=== PATIENT | male | born 1940 | race Caucasian/White ===

== ENCOUNTER → 2017-09-23 | Outpatient (CLI) | payer OTHER ==
[~2017-09-23] MED LIST: ARICEPT 5 MG TAB5 MG PO; ASPIR 8181 MG PO; AVELOX ABC PAC400 MG PO; B12INJ IM; CENTRUM SILVER1 EAC2 PO; CRESTOR; EFFIENT10 MG PO; EZETIMIBE; FISHOIL; LISINOPRIL10 MG PO; LIVALO2 MG PO; PAXIL10 MG PO; PRALUENT P75 MG/1 ML SQ; PROAIR HFA8.5 GM IH; ZANTAC 150MG T150 MG
[2017-09-23 12:05] LABS: ALBUMIN 3.7 g/dL (3.4-5.0); ALKALINE PHOSPHATASE 56 U/L (46-116); ANION GAP 9 mmol/L (7-16); BUN 20 mg/dL (7-18); CHLORIDE 106 mmol/L (98-107); CHOLESTEROL 259 mg/dL (<200); CO2 24 mmol/L (21-32); CREATININE 0.8 mg/dL (0.6-1.3); GLUCOSE 113 mg/dL (70-99); HDL CHOLESTEROL 52 mg/dL (>40); LDL CHOLESTEROL 163 mg/dL (<100); POTASSIUM 4.3 mmol/L (3.5-5.1); SGOT 14 U/L (15-37); SGPT 16 U/L (30-65); SODIUM 139 mmol/L (136-145); TOTAL BILIRUBIN 0.2 mg/dL (<0.1-1.0); TOTAL PROTEIN 7.7 g/dL (6.4-8.2); TRIGLYCERIDE 221 mg/dL (<150); VLDL 44 mg/dL (<40)
[2017-09-23 12:06] LABS: SERUM ASSESSMENT Clear
== END ==
LOC: M.LAB 11:12
PROVIDERS: Internal Medicine
DX: E78.2 Mixed hyperlipidemia (principal)

== ENCOUNTER → 2018-10-20 | Outpatient (CLI) | payer OTHER ==
[2018-10-20 13:53] LABS: CHOLESTEROL 235 mg/dL (<200); HDL CHOLESTEROL 57 mg/dL (>40); LDL CHOLESTEROL 148 mg/dL (<100); SERUM ASSESSMENT Clear; TC:HDL 4.1 Ratio (Not establshd); TRIGLYCERIDE 152 mg/dL (<150); VLDL 30 mg/dL (<40)
== END ==
LOC: M.LAB 13:14
PROVIDERS: Nurse Practitioner
DX: E78.5 Hyperlipidemia, unspecified (principal)

== ENCOUNTER 2018-12-25 09:01 | Inpatient (IN) | payer OTHER ==
[~2018-12-25] VITALS: Ht 167.6 cm; Wt 74.8 kg
[2018-12-25 09:08] VITALS: BP 120/61
[2018-12-25] MEDS ORDERED: MYRBETRIQ25 MG PO (09:24)
[2018-12-25] MEDS ORDERED: PRALUENT P75 MG/1 ML SUBQ (09:25)
[2018-12-25] MEDS ORDERED: IMDUR 30 MG TAB30 M1 PO (09:27)
[2018-12-25] MEDS ORDERED: PLAVIX 75 MG TA75 M1 PO (09:28)
[2018-12-25 09:51] LABS: ABSOLUTE EOSINOPHILS 0.4 thou/uL (0.0-0.7); ABSOLUTE LYMPHOCYTES 0.9 thou/uL (0.8-5.3); ABSOLUTE MONOCYTES 0.7 thou/uL (0.0-1.2); ABSOLUTE NEUTROPHILS 4.7 thou/uL (1.6-8.1); BASOPHILS 0.7 %; EOSINOPHILS 5.3 %; HEMOGLOBIN 14.4 gm/dL (14.0-18.0); LYMPHOCYTES 13.8 %; MCH 28.5 pg (26.0-34.0); MCHC 33.4 g/dL (28.0-37.0); MCV 85.3 fL (80.0-100.0); MONOCYTES 10.4 %; MPV 9.7 fl. (7.2-11.1); NUCLEATED RBCS 0 /100WBC; PLATELET COUNT* 163 thou/uL (150-400); POLYS 69.8 %; RBC 5.04 mil/uL (4.50-6.00); RDW-CV 12.9 % (10.5-14.5); WBC 6.7 thou/uL (4.0-11.0)
[2018-12-25 10:02] LABS: ANION GAP 9 mmol/L (7-16); BUN 16 mg/dL (7-18); CALCIUM 8.9 mg/dL (8.5-10.1); CHLORIDE 106 mmol/L (98-107); CO2 28 mmol/L (21-32); CREATININE 0.8 mg/dL (0.6-1.3); GLUCOSE 102 mg/dL (70-99); POTASSIUM 4.3 mmol/L (3.5-5.1); SODIUM 143 mmol/L (136-145)
[2018-12-25 10:03] LABS: BE 0.3 mmol/L (-2 to +3); PO2 101.7 mmHg (75.0-100.0); pH 7.434 (7.340-7.450)
[2018-12-25 10:11] LABS: ALBUMIN 3.4 g/dL (3.4-5.0); ALKALINE PHOSPHATASE 48 U/L (46-116); MAGNESIUM 1.9 mg/dL (1.8-2.4); SGOT 15 U/L (15-37); SGPT 19 U/L (30-65); TOTAL BILIRUBIN 0.4 mg/dL (<0.1-1.0); TOTAL PROTEIN 7.1 g/dL (6.4-8.2); TROPONIN-I LEVEL <0.06 ng/mL (<0.06)
[2018-12-25 10:15] LABS: PROTIME 10.3 Seconds (9.20-11.50)
--- NOTE | 2018-12-25 10:19 | NUR ---
PT STATES NOT ABLE TO GIVE URINE SAMPLE AT THIS TIME, WAS GIVEN WATER UPON PT'S REQUEST AND HAS A URINAL AT BEDSIDE.
[2018-12-25 11:28] LABS: URINE BILIRUBIN NEGATIVE (Negative); URINE BLOOD NEGATIVE (Negative); URINE CLARITY CLEAR; URINE COLOR YELLOW; URINE GLUCOSE-RANDOM NEGATIVE (Negative); URINE KETONES NEGATIVE (Negative); URINE LEUKOCYTES-REFLEX NEGATIVE (Negative); URINE NITRITE-REFLEX NEGATIVE (Negative); URINE PROTEIN NEGATIVE (Negative); URINE UROBILINOGEN 0.2 E.U./dl (0.2-1.0)
[2018-12-25 13:20] VITALS: BP 121/68
[2018-12-25 14:30] VITALS: BP 97/58
--- NOTE | 2018-12-25 15:45 | NUR ---
PATIENT ARRIVED TO 221 THIS AFTERNOON FROM MRI. PATIENT IS ALERT, ORIENTED TO PERSON. REORIENTED TO DATE AND PLACE. PATIENT WAS ASSISTED UP TO THE BATHROOM BY RADIOLOGY PERSONAL. HIS GAIT IS UNSTEADY. HIS DAUTHTER IS AT THE BEDSIDE. VSS. PATIENT PLACED ON TELE MONITOR, TELE SHOWS NSR. PATIENT ORIENTED TO ROOM AND PROCEDURES. HE WAS RESTING IN BED WITH CALL LIGHT IN REACH. PATIENT,S DAUGHTER ASSISTED HIM TO THE BATHROOM AND UP TO CHAIR. PATIENT REMINDED OF FALL PRECAUTIONS. NEUROLOGY IS HERE NOW TO SEE PATIENT.
[2018-12-25 15:53] VITALS: BP 143/65
[2018-12-25 20:00] VITALS: BP 142/68
[2018-12-26] VITALS (7 sets, daily range): BP systolic 104–163; BP diastolic 53–82
--- NOTE | 2018-12-26 05:04 | NUR ---
PT IRRITABLE, IMPULSIVE AND WANTING TO GO HOME AT START OF SHIFT. DTR HERE, REQUESTING MED FOR SLEEP AND ANXIETY FOR PT-ORDERS RECEIVED AND GIVEN. PT SLEPT WELL OFF AND ON, SETTING OFF BED ALARM WHEN TRYING TO GET OOB TO USE URINAL. ASSISTED WITH URINAL TO VOID. DENIES PAIN. NIH 5 THIS SHIFT, SOME LEFT LEG DRIFT, FACIAL PALSY AND SLURRED SPEECH. TELE SR. BC MCKEON. REHAB CONSULT. ROOM AIR. CALL LITE IN EASY REACH. BED ALARM ON FOR SAFETY.
[2018-12-26 05:31] LABS: ABSOLUTE EOSINOPHILS 0.4 thou/uL (0.0-0.7); ABSOLUTE LYMPHOCYTES 1.3 thou/uL (0.8-5.3); ABSOLUTE MONOCYTES 0.8 thou/uL (0.0-1.2); ABSOLUTE NEUTROPHILS 3.5 thou/uL (1.6-8.1); BASOPHILS 0.8 %; EOSINOPHILS 6.9 %; HEMOGLOBIN 14.5 gm/dL (14.0-18.0); LYMPHOCYTES 21.1 %; MCH 28.7 pg (26.0-34.0); MCHC 33.6 g/dL (28.0-37.0); MCV 85.3 fL (80.0-100.0); MONOCYTES 13.3 %; MPV 9.7 fl. (7.2-11.1); NUCLEATED RBCS 0 /100WBC; PLATELET COUNT* 148 thou/uL (150-400); POLYS 57.9 %; RBC 5.04 mil/uL (4.50-6.00); RDW-CV 12.6 % (10.5-14.5)
[2018-12-26 05:50] LABS: ALBUMIN 3.1 g/dL (3.4-5.0); CALCIUM 8.8 mg/dL (8.5-10.1); CREATININE 0.8 mg/dL (0.6-1.3); POTASSIUM 4.3 mmol/L (3.5-5.1); TOTAL BILIRUBIN 0.3 mg/dL (<0.1-1.0); TOTAL PROTEIN 6.7 g/dL (6.4-8.2)
--- NOTE | 2018-12-26 09:00 | NUR ---
INITAL ASSESSMENT COMPLETED CHARTED. NIH=2. TRACING SR ON MONITOR. VSS. PT CECILIO PAIN N/V/D. NO NEW CONCERNS. PT DENIES ANY FURTHER NEEDS AT THIS TIME. HOURLY ROUNDING AND FALL PRECAUTIONS IN PLACE FOR PT SAFETY. CLWR
--- NOTE | 2018-12-26 13:51 | NUR ---
Spoke with Pt, dtr and s/o in room. Pt has dementia, but able to provide some background info. Pt resides at home with his dtr, dtr assists with cares. Pt is incontinent. Dtr has lived with the Pt for the past 2 years. Dtr works during the day, but s/o comes and stays with Pt most of the time. Pt has a walker and cane that he can use for mobility. Hx of HH. No hx of SNF. Hx of outpt therapy. Goal is for Pt to go [place], then to home with dtr/family support. Following.
[2018-12-27 04:00] VITALS: BP 148/59
--- NOTE | 2018-12-27 05:06 | NUR ---
PT SLEPT WELL OVERNIGHT, SETTING OFF BED ALARM TRYING TO GET OUT OF BED TO GO TO THE BATHROOM. PT WEAK, USING URINAL AT BEDSIDE AT TIMES BUT INCONTINENT MOST OF THE TIME OVERNIGHT. TYLENOL GIVEN AT HS FOR FRIEDMAN WITH GOOD RESULT. NADYA. TELE SR, SB. REHAB AND UROLOGY TO SEE PT. NO LABS THIS MORNING. CALL LITE IN EASY REACH, BED ALARM ON FOR SAFETY.[facility] 2 THIS SHIFT.
[2018-12-27 08:00] VITALS: BP 152/68
--- NOTE | 2018-12-27 10:07 | NUR ---
ASSUMED CARE OF PT AT 0730. PT RESTING IN RECLINER WAITING FOR BREAKFAST. PT A&0X4, FORGETFUL AT TIMES. PT TRACING SR ON THE FURNITURE MANAGER. ON RA SAT UPPER 90'S. PT DENIES ANY PAIN OR SHORTNESS OF BREATH AT THIS TIME. PT UP WITH 1 ASSIST AND WALKER TO BATHROOM. PT HAS STRESS INCONT, UROLOGY CONSULT IN PLACE. PT GOAL FOR TODAY IS WORK WITH PT AND OT, UROLOGY TO SEE PT, REHAB CONSULT IN PLACE AND UP TO CHAIR FOR MEALS. AM ASSESSMENT CHARTED. MEDICATIONS PER JUL. PT REPOSITIONED EVERY 2 HOURS FOR COMFORT. HOURLY ROUNDING OBSERVED. BED IN LOW POSITION. BED ALARM IN PLACE. FALL PRECAUTIONS IN PLACE. CALL LIGHT WITHIN REACH. WILL CONTINUE PLAN OF CARE.
[2018-12-27 11:30] VITALS: BP 109/56
--- NOTE | 2018-12-27 11:48 | NUR ---
LEAD POURER: MET WITH PATIENT REVIEWED STROKE PROGRAM AND DISCUSSED CONCERNS, PT REPORTS NOT REMEMBERING TO TAKE HIS MEDICATIONS AT HOME CONSISTENTLY. REVIEWED SIGNS AND SYMPTOMS OF STROKE AND DISCUSSED MEDICATIONS, TAKING STATIN TO LOWER LDL. PROVIDED REINFORCEMENT.
--- NOTE | 2018-12-27 11:48 | NUR ---
Spoke with , Pt is medically stable to dc pending acute rehab approval to accept and insurance auth. Updated rehab tech.
[2018-12-27 16:05] VITALS: BP 126/58
--- NOTE | 2018-12-27 18:38 | NUR ---
NO ACUTE CHANGES THROUGHOUT SHIFT. REFER TO CHARTING. PT PROGRESSING TOWARDS GOALS. UP TO CHAIR FOR ALL MEALS. TOLERATED WELL. VISITORS AT BEDSIDE THIS AFTERNOON. PT MADE MED SURG STATUS. ON RA SAT UPPER 90'S. PT DENIES ANY PAIN OR SHORTNESS OF BREATH THROUGHOUT AFTERNOON. PT UP WITH 1 ASSIST AND WALKER TO BATHROOM. PT WORKED WITH PT AND OT TODAY-TOLERATED WELL. MEDICATIONS PER JUL. PT REPOSITIONS SELF. HOURLY ROUNDING OBSERVED. BED IN LOW POSITION. CALL LIGHT WITHIN REACH. WILL CONTINUE PLAN OF CARE.
[2018-12-27 19:50] VITALS: BP 126/58
[2018-12-28] VITALS: BP 160/68
--- NOTE | 2018-12-28 07:45 | NUR ---
Rehab Dr evaluated Pt, Pt looks to be a good rehab candidate, CM asked rehab manager to initiate insurance auth, Pt is medically stable to dc. Following.
--- NOTE | 2018-12-28 07:45 | NUR ---
PT CARE ASSUMED AT 1930. SAT MAINTAINED IN RA. PT IS IMPULSIVE, HAS URGENCY OF URINE. CONFUSED AT TIMES. CALL LIGHT WITHIN REACH AND BED IN LOW POSITION. HOURLY ROUNDING DONE FOR PT SAFETY.
[2018-12-28 08:00] VITALS: BP 153/69
[2018-12-28 12:00] VITALS: BP 130/63
--- NOTE | 2018-12-28 13:05 | NUR ---
ASSUMED CARE OF PT AT 0730. PT RESTING IN BED. PT A&0X3-4, FORGETFUL AND CONFUSED AT TIMES. PT STATES HE DID NOT SLEEP WELL AT ALL LAST NOC AND REQUESTED TO SLEEP IN THIS AM. PT SLEPT THROUGH BREAKFAST AND REFUSED TO EAT BREAKFAST. PT CURRENTLY EATING LUNCH AT THIS TIME. PT MED SURG STATUS. ON RA SAT 95%. PT DENIES ANY PAIN OR SHORTNESS OF BREATH AT THIS TIME. PT UP WITH 1 ASSIST AND WALKER TO BATHROOM. STRESS INCONT NOTED. UROLOGY HERE TO SEE PT. NO NEW ORDERS RECEIVED. PVR LESS THAN 100. PT GOAL FOR TODAY IS WORK WITH PT AND OT AND DISCHARGE PLANNING TO REHAB. AM ASSESSMENT CHARTED. MEDICATIONS PER JUL. PT REPOSITIONED EVERY 2 HOURS FOR COMFORT. HOURLY ROUNDING OBSERVED. BED IN LOW POSITION. BED/CHAIR ALARM IN PLACE. FALL PRECAUTIONS IN PLACE. CALL LIGHT WITHIN REACH. WILL CONTINUE PLAN OF CARE.
--- NOTE | 2018-12-28 13:23 | NUR ---
Insurance auth received, awaiting room assignment. CM to fax orders. Updated nurse.
[2018-12-28] MEDS ORDERED: LIPITOR10 MG PO (15:34)
[2018-12-28] MEDS ORDERED: SERTRALINE HCL50 MG PO (15:35)
[2018-12-28] MEDS ORDERED: NAMENDA 5 MG TAB5 M1 PO (15:38)
[2018-12-28 15:40] VITALS: BP 130/63
--- NOTE | 2018-12-28 16:50 | NUR ---
PT WORKED WITH PT AND OT TODAY. TOLERATED WELL. UP TO CHAIR FOR MEALS. DISCHARGE ORDERS RECEIVED. DISCHARGE INSTRUCTIONS, CARE NOTES, SCRIPTS AND FOLLOW UP APPTS GIVEN TO PT. PT COMMUNICATES UNDERSTANDING OF DISCHARGE TEACHING. FAMILY AT BEDSIDE. IV REMOVED. PT DISCHARGED WITH ALL BELONGINGS AND PAPERWORK VIA WHEELCHAIR WITH NURSING STAFF TO REHAB ROOM 324. REPORT GIVEN TO MIRNA LI.
== END 2018-12-28 16:52 | DRG 65 ==
LOC: M.ERS 09:01 → M.2W 12:01 → M.TBA-ER 12:01 → M.ERS 13:22 → M.2W 13:48
PROVIDERS: Personal Emergency Response Attendant; ADMIT Internal Medicine
DX: I63.9 Cerebral infarction, unspecified (principal); G81.94 Hemiplegia, unspecified affecting left nondominant side; E78.00 Pure hypercholesterolemia, unspecified; F03.90 Unspecified dementia, unspecified severity, without behavioral disturbance, psychotic disturbance, mood disturbance, and anxiety; K21.9 Gastro-esophageal reflux disease without esophagitis; F32.9 Major depressive disorder, single episode, unspecified; G47.33 Obstructive sleep apnea (adult) (pediatric); E78.5 Hyperlipidemia, unspecified; R32 Unspecified urinary incontinence; I10 Essential (primary) hypertension; I25.10 Atherosclerotic heart disease of native coronary artery without angina pectoris; Z95.5 Presence of coronary angioplasty implant and graft; Z79.82 Long term (current) use of aspirin; Z88.8 Allergy status to other drugs, medicaments and biological substances; Z87.891 Personal history of nicotine dependence; Z90.49 Acquired absence of other specified parts of digestive tract

== ENCOUNTER 2018-12-28 14:44 | Inpatient (IN) | payer OTHER ==
[~2018-12-28] VITALS: Ht 167.6 cm; Wt 72.1 kg
[~2018-12-28 14:44] MED LIST changes: +IMDUR 30 MG TAB30 M1 PO; +MYRBETRIQ25 MG PO; +PLAVIX 75 MG TA75 M1 PO; +PRALUENT P75 MG/1 ML SUBQ
[2018-12-28] MEDS ORDERED: LIPITOR10 MG PO (15:34)
[2018-12-28] MEDS ORDERED: SERTRALINE HCL50 MG PO (15:35)
[2018-12-28] MEDS ORDERED: NAMENDA 5 MG TAB5 M1 PO (15:38)
[2018-12-28 17:30] VITALS: BP 120/50
--- NOTE | 2018-12-28 18:39 | NUR ---
PATIENT ADMITTED TO ROOM 324 FROM [facility]. REPORT RECEIVED FROM MIRNA VILLANUEVA. PATIENT ALERT AND ORIENTED, COOPERATIVE. NO COMPLAINTS OF PAIN. PATIENT SITTING IN RECLINER. REG DIET. ORDERS RECEIVED FROM DR. LEUNG AND DR. GLEZ FOR ADMISSION AND MEDS. FALL RISK PROTOCOL. ORIENTED TO ROOM AND ROUTINE. CALL LIGHT WITHIN REACH, WILL CONTINUE TO MONITOR.
[2018-12-28 19:35] VITALS: BP 120/56
--- NOTE | 2018-12-28 19:35 | NUR ---
AT ABOUT 1920 PATIENT SET OFF CHAIR ALARM. DAY RN GOT TO PATIENT BEFORE PATIENT GOT UP. DAY RN STATES PATIENT WAS INCONTINENT OF URINE. PATIENT ASSISTED TO BED WITH MAX ASSIST OF 2, GAITBELT, WALKER, CUEING, LIFTING OF BOTH LEGS. PATIENT HAS LEFT HEMIPARESIS ESPECIALLY IN THE LOWER EXTREMITY. CURRENTLY RESTING QUIETLY IN BED AND WATCHING THE NEWS. TOOK MEDS WHOLE A FEW AT A TIME WITH WATER. DENIES DISCOMFORT.
[2018-12-29 02:10] LABS: URINE BILIRUBIN NEGATIVE (Negative); URINE BLOOD NEGATIVE (Negative); URINE CLARITY CLEAR; URINE COLOR YELLOW; URINE GLUCOSE-RANDOM NEGATIVE (Negative); URINE KETONES NEGATIVE (Negative); URINE LEUKOCYTES NEGATIVE (Negative); URINE NITRITE NEGATIVE (Negative); URINE PROTEIN NEGATIVE (Negative); URINE UROBILINOGEN 0.2 E.U./dl (0.2-1.0)
--- NOTE | 2018-12-29 05:17 | NUR ---
AT 0030 PATIENT SET OFF BED ALARM. PATIENT WAS STANDING AT SIDE OF BED WHEN STAFF ARRIVED. INCONTINENT OF URINE IN PULL UPS PLUS VOIDED MORE PER URINAL. URINE SAMPLE SENT FOR UA WHICH WAS NEGATIVE. HOURLY ROUNDING IN PROGRESS.
[2018-12-29 07:41] VITALS: BP 156/66
[2018-12-29 08:40] LABS: HEMATOCRIT 44.4 % (42.0-52.0); HEMOGLOBIN 15.4 gm/dL (14.0-18.0); MCH 29.3 pg (26.0-34.0); MCHC 34.7 g/dL (28.0-37.0); MCV 84.4 fL (80.0-100.0); MPV 9.8 fl. (7.2-11.1); RBC 5.26 mil/uL (4.50-6.00); RDW-CV 12.9 % (10.5-14.5); WBC 6.4 thou/uL (4.0-11.0)
[2018-12-29 08:44] LABS: CREATININE 0.7 mg/dL (0.6-1.3); POTASSIUM 4.3 mmol/L (3.5-5.1)
--- NOTE | 2018-12-29 09:45 | NUR ---
Nutrition: Pt admitted to rehab with Rt CVA. H/o CAD, HTN, dementia. Regular diet, good appetite. Wt change consult: per [employer], wt was 170# 2 yrs ago, admit was 161#, today's wt is 160#. No apparent significant wt loss. Meds noted. Will follow po intake, wt trends, labs. Appears at low risk.
--- NOTE | 2018-12-29 15:27 | NUR ---
SW completed initial assessment, pt was working with PT, SW called pt dtr and left detailed message introducing self and role on inpt rehab. Pt lives at home with dtr who works during the day but provides assistance otherwise and pt significant other assist pt and can be with pt whenever pt dtr is working. Pt is incontinent. Pt has RW and a cane. Pt has hx of HH and hx of OP. Pt doesn't have any hx of SNF. SW to continue to follow to assist with safe dc planning.
--- NOTE | 2018-12-29 16:08 | NUR ---
SHIFT NOTE - PT PARTICIPATED WITH ALL THERAPIES TODAY. TOLERATED WELL. UP TO BR WITH WALKER, GAIT BELT, AND MIN ASSIST. BRIEF PLACED. WILL CONTINUE TO MONITOR.
--- NOTE | 2018-12-29 16:12 | NUR ---
I have reviewed the documentation by HARIKA GOMEZ from TODAY to 12/29/18 and I concur with it. MILLIE LOO
[2018-12-29 20:00] VITALS: BP 160/70
--- NOTE | 2018-12-30 05:28 | NUR ---
ALERT AND ORIENTED. PLEASANT BUT FORGETFUL AT TIMES. IMPULSIVE, GETTING UP OUT OF BED WITHOUT CALLING. CVA WITH LEFT SIDE WEAKNESS. MIN ASSIST WITH GAIT BELT AND WALKER. UNSTEADY SLOW GAIT. DRAGS LEFT FOOT. NEEDS CUEING TO KEEP WALKER CLOSE AT ALL TIMES. UP TO BATHROOM. PULLUPS FOR URINARY INCONTINENCE. DID HAVE STOOL ACCIDENT WELL. DENIED ANY PAIN. PT REQUESTED PODIATRY CONSULT TO TRIM TOENAILS. SLEPT OFF AND ON. CALL LIGHT IN REACH AND BED ALARM ON.
[2018-12-30 08:30] VITALS: BP 135/68
--- NOTE | 2018-12-30 13:16 | NUR ---
SW met with pt and pt dtr Tessa [phone] to discuss inpt rehab stay and safe dc planning when ready. Pt and pt dtr expressed understanding and continue to work towards goals for pt to be as independent as possible upon dc home with family/sig other assistance/supervision. SW to continue to follow to assist with safe dc planning.
--- NOTE | 2018-12-30 14:08 | NUR ---
ASSUMED CARE AT 0730. ALERT ORIENTED PLEASANT AND COOPERATIVE. HX OF DEMENTIA AND CVA L SIDE WEAKNESS. TRANSFERS WITH MIN ASSIST G BELT WALKER NEEDS CUES TO STAY ON TRACK. DID REQUEST TOILET THIS A.M. WAS INCONTINENT URINE IN PULLUPS PERICARE AND FRESH PULLUPS APPLIED. C/O NAUSEA UPSET TUMMY THROUGH THE NIGHT TOOK CRACKERS AND SEVEN UP. DR. BARRY AND AMARIS ROUNDED. PROTONIX AND ZOFRAN ORDERED. PARTICIPATING IN THERAPIES. DAUGHTER KEMAR FROM [employer] HERE TODAY. NEEDS CUEING WITH AMBULATION. SITTING UP IN RECLINER AT BEDSIDE. HAS USED CALL LIGHT APPROPRIATELY TODAY FOR ASSIST.
--- NOTE | 2018-12-30 15:14 | NUR ---
I have reviewed the documentation by HARIKA GOMEZ from TODAY to 12/30/18 and I concur with it. MILLIE LOO
--- NOTE | 2018-12-30 18:25 | NUR ---
NO FURTHER COMPLAINTS OF NAUSEA APPETITE GOOD AT LUNCH AND SUPPER. DAUGHTER AND BROTHER HERE VISITING AND SIGNIFICENT OTHER VISITING LATER AFTERNOON. MOVE TO ROOM 320 D FOR CLOSER MONITORING PT. HAS BEEN COOPERATIVE WITH STAFF USED CALL LIGHT APPROPRIATELY TODAY.
[2018-12-30 19:33] VITALS: BP 128/61
--- NOTE | 2018-12-30 23:52 | NUR ---
ASSUMED CARE AT 1915. PATIENT RESTING IN RECLINER. UP WITH STEADYING ASSIST, GAIT BELT, WALKER, MUCH CUEING FOR WALKER PLACEMENT AND SAFETY. TAKES PILLS WHOLE ONE AT A TIME. STOOD TO VOID AT TOILET TWICE, BUT SECOND TIME C/O FEELING LIKE HE WAS GOING TO FALL DESPITE THIS NURSE PROVIDING STEADYING ASSIST. THEN HE SAT ON TOILET TO VOID WITH DELAY IN STARTING STREAM. WILL USE BSC THROUGH REST OF NIGHT BECAUSE TOILET IS LOW AND HE NEEDS SOMETHING TO PUSH OFF OF LIKE THE ARM RESTS ON THE BSC. WAS INCONTINENT INTO BRIEF, BUT CONTAINED IN BRIEF. IMPULSIVE, BUT DID USE CALL LITE ONCE. BED ALARM ON, CALL LITE IN REACH. HOURLY ROUNDS. DENIES PAIN.
--- NOTE | 2018-12-31 01:31 | NUR ---
BLADDER SCANNED AFTER C/O NOT VOIDING. 138 ML. RETURNED TO BED. STILL AWAKE. HOURLY ROUNDS CONTINUE.
--- NOTE | 2018-12-31 05:13 | NUR ---
SLEPT OFF AND ON. WHILE SLEEPING, SNORING WAS NOTED. INCONTINENT OF URINE CONTAINED IN BRIEF. DID VOID PER TOILET OR BSC. REMAINS CONFUSED, BUT MOSTLY COMPLIES WITH REQUEST FOR SAFETY. DENIES PAIN.
[2018-12-31 08:01] VITALS: BP 168/86
--- NOTE | 2018-12-31 15:56 | NUR ---
ASSUMMED CARE OF PT AT 0730, PT ALERT, FORGETFUL AND BECOMES MORE CONFUSED DAY HAS PROGRESSED, SETS OFF ALARMS AT TIMES, IMPULSIVE, PT FATIGUES EASILY,DISCUSSED IMPULSIVNESS/CONFUSION WITH PHYSICIAN AND PRN XANAX ORDER OBTAINED, DENIES PAIN, PT TRANSFERS WITH MIN ASSIST GB WALKER CUEING, WEAK ON LEFT SIDE, PT VOIDS IN TOILET AND ALSO INCONTINENT OF URINE IN BRIEF, NEEDS ENCOURAGEMENT TO EAT, ATE POOR FOR BREAKFAST BUT DID BETTER FOR LUNCH, PARTICIPATED IN ALL THERAPIES, HOURLY ROUNDING COMPLETED, ASSESSMENT COMPLETE, WILL CONTINUE TO MONITOR.
--- NOTE | 2018-12-31 19:50 | NUR ---
SITTING UP IN RECLINER WATCHING TV. CONSUMED 2 PUDDINGS. DENIES DISCOMFORT. TOOK MEDICATIONS WHOLE A FEW AT A TIME WITH WATER. CALL LIGHT AND TV REMOTE WITHIN REACH.
[2018-12-31 19:53] VITALS: BP 100/73
--- NOTE | 2019-01-01 05:29 | NUR ---
RESTED ON/OFF. ASSISTED WITH URINAL X 4. INCONTINENT OF URINE AT TWO. JAYCOB CARE GIVEN. SOMETIMES USES CALL LIGHT APPROPRIATELY. HOURLY ROUNDING IN PROGRESS.
[2019-01-01 07:56] VITALS: BP 153/72
--- NOTE | 2019-01-01 16:37 | NUR ---
ASSUMMED CARE OF PT AT 0730, PT ALERT, FORGETFUL, TRANSFERS WITH ASSIST OF 1, GB, FREQUENT CUEING WITH WHERE TO PLACE WALKER, SLOW TO AMBULATE/TRANSFER, AMBULATES INTO BATHROOM TO VOID, INCONTINENT AT TIMES, WEARS BRIEF, DENIES PAIN, TAKING FOOD AND FLUIDS WELL, TO DININGROOM FOR LUNCH, REFUSED BATH THIS AM, DISCUSSED WITH FAMILY NEED TO BRING IN CLOTHES FOR PT, STATED THEY WOULD BRING IN, PT VISITNG WITH FRIENDS AND FAMILY THRU OUT DAY, PT HAS DRY SENSE OF HUMOR AND AT TIMES DIFFICULT TO UNDERSTAND WHAT PT IS TRYING TO SAY, AND PT LOOSES FOCUS WITH TASK HE IS DOING EASILY, HOURLY ROUNDING COMPLETED, ASSESSMENT COMPLETE, WILL CONTINUE TO MONITOR.
[2019-01-01 20:00] VITALS: BP 167/68
--- NOTE | 2019-01-02 02:08 | NUR ---
ASSUMED CARE AT 1915. PATIENT RESTING IN BED. ASSISTED WITH DOFFING AND DONNING PULLUPS. INCONTINENT IN PULLUPS BUT CONTAINED IN PULLUPS. HAS SLEPT BETTER THUS FAR THIS SHIFT COMPARED TO WEDNESDAY NIT/SAT MORNING. TURNS SELF OFTEN. TAKES PILLS WHOLE WITH WATER, A COUPLE AT A TIME. DENIES PAIN. COLACE GIVEN THIS PM. HOURLY ROUNDS CONTINUE. BED ALARM ON. CALL LITE IN REACH.
--- NOTE | 2019-01-02 05:04 | NUR ---
SLEPT MOST OF THE NIGHT. TURNS SELF OFTEN. INCONTINENT OF URINE ONTO ROBE, REQUIRING REMOVAL. BRIEF CHANGED, SKIN CARE DONE. NO C/O PAIN. HOURLY ROUNDS CONTINUE. BED ALARM ON. CALL LITE IN REACH.
[2019-01-02 08:22] VITALS: BP 149/54
--- NOTE | 2019-01-02 12:55 | NUR ---
PT HAS BEEN TO AND RETURNED AND REMAINS ALERT AND GENERALLY ORIENTATED. UROLOGIST AT HAS TOLD DAUGHTER AND PT THAT SHE MAY RESUME ST CATHING PER HOME SCHEDUAL. PT'S DAUGHTER HAS BROUGHT SUPPLIES FROM HOME AND STATED PT DID SELF CATH WHILE AT DOCTOR VISIT WITHOUT PROBLEM. PT DOES ST CATH SELF EVERY 4-6 HOURS AND NEEDED.PENA WAS REMOVED. PT IS ENCOURAGED TO DRINK PO FLUIDS FOR GOOD OUTPUT.NURSING WILL ASSIST NEEDED.PT DENIES PAIN. DRESSING TO LT HIP DRY AND INTACT.PT HAS EATEN LUNCH IN DINNINGROOM.
--- NOTE | 2019-01-02 16:40 | NUR ---
PT HAS PARTICIPATED WITH THRAPIES AND HAS HAD BM TODAY. PT EATS MEALS IN DINNINGROOM. PT CALLS FOR ASSIST PART OF TIME OTHERWISE FORGETS. PT DENIES PAIN. PT HAS WORKED WITH THERAPIES TODAY. DAUGHTER HERE AND IS CONSERNED ABOUT WHEN DISCHARGE WILL BE.
[2019-01-02 19:38] VITALS: BP 107/62
--- NOTE | 2019-01-03 05:21 | NUR ---
ALERT AND ORIENTED BUT CAN GET FORGETFUL AND IMPULSIVE. DENIED ANY PAIN. CVA WITH LEFT SIDE WEAKNESS. MIN ASSIST WITH GAIT BELT AND WALKER. UP TO BATHROOM. DRAGS LEFT FOOT. WEARS PULLUPS. DOES HAVE URINARY INCONTINENCE. SLEPT MOST OF THE NIGHT. CALL LIGHT IN REACH AND BED ALARM ON.
[2019-01-03 07:00] VITALS: BP 155/77
--- NOTE | 2019-01-03 13:24 | NUR ---
ASSUMED CARE AT 0730. ALERT ORIENTED, BUT FORGETFUL AT TIMES. PLEASANT COOPERATIVE. HX OF CVA L SIDE WEAKNESS. TRANSFERS WITH SBA G BELT WALKER. AMBULATES TO BR WITH WALKER TO VOID. PARTICIPATING IN THERAPIES THROUGHOUT THE DAY. DENIES PAIN OR CONCERNS. FEEDS SELF AND TAKES MEDS WITHOUT DIFFICULTY. ENJOYED TOMATO SOUP AND GRILLED CHEESE AT LUNCH. WEARS PULLUPS FOR URINE INCONTINENCE. BED CHAIR ALARM FOR PT. SAFETY.
[2019-01-03 20:00] VITALS: BP 132/69
--- NOTE | 2019-01-04 05:46 | NUR ---
ASSUMED CARES AT 1920. ALERT AND ORIENTED BUT FORGETFUL AND CONFUSED AT TIMES. LEFT SIDED WEAKNESS. MIN ASSIST WITH GAIT BELT AND WALKER. UP TO BR BUT HAD TO USE BSC DUE TO INCREASED WEAKNESS OVERNIGHT. DRAGGING LEFT FOOT AND NEEDS CUEING FOR PROPER USE OF WALKER. URINARY INCONTINENCE. HAD TO CHANGE PANTS X 2. WEARS PULLUPS. GOT UP SEVERAL TIMES OVERNIGHT TO VOID. SLEPT LITTLE. AT TIMES WOULD GET UP WITHOUT CALLING. CALL LIGHT IN REACH AND BED ALARM ON.
[2019-01-04 07:32] VITALS: BP 161/81
--- NOTE | 2019-01-04 12:22 | NUR ---
DANIEL and Dr Brown met with pt and pt dtr Tessa to review team conference summary and plan for pt to remain on rehab unit at least one more week to continue to progress towards goals, strengthening, balance. Pt and pt dtr in agreement with plan. Team to reassess pt length of stay during team conference next Wednesday.
--- NOTE | 2019-01-04 16:12 | NUR ---
PT CONTINUES TO HAVE LEFT SIDED WEAKNESS, DRAGS LEFT FOOT WHEN AMBULATING. PT USES A WALKER WITH OCCASIONAL SAFETY CUES. FALL PRECAUTIONS IN PLACE, PT IS IMPULSIVE AND DOESN'T USUALLY CALL FOR ASSISTANCE. PT WEARS PULL UPS AND IS FREQUENTLY INCONTINENT BEFORE HE GETS TO THE TOILET. NO C/O PAIN OR DISCOMFORT. HOURLY ROUNDING CONTINUES.
--- NOTE | 2019-01-04 19:35 | NUR ---
SITTING UP IN CHAIR READING THE PAPER. DENIES DISCOMFORT. SNACK PROVIDED. CALL LIGHT AND TV REMOTE BOTH WITHIN REACH.
[2019-01-04 20:00] VITALS: BP 131/66
--- NOTE | 2019-01-05 05:45 | NUR ---
RESTED ON/OFF. DOESN'T CALL FOR ASSIST. INCONTINENT DURING THE NIGHT AND ALSO VOIDED PER URINAL DURING THE NIGHT. JAYCOB CARE GIVEN. HOURLY ROUNDING IN PROGRESS.
[2019-01-05 07:38] VITALS: BP 165/75
--- NOTE | 2019-01-05 14:55 | NUR ---
I have reviewed the documentation by HARIKA GOMEZ from TODAY to 01/05/19 and I concur with it. MILLIE LOO
--- NOTE | 2019-01-05 17:23 | NUR ---
PT HAS WORKED WITH THERAPIES TODAY BUT HAS BEEN TIRED AND NAPPED IN RECLINER OFF AND ON WITH FEET ELEVATED.PT CALLS FOR ASSIST TO BATHROOM BUT WEARS BREIF DUE TO DRIBBLING. PT DENIES PAIN.PT ALERT AND USUALLY ORIENTATED BUT DOES FORGET TO CALL FOR ASSIST TO BATHROOM AT TIMES.PT AMBULATES WITH WALKER,GAITBELT AND QUEING TO REMIND TO FORENSICS TEAM DIRECTOR LT FOOT WITH 1 ASSIST.
[2019-01-05 19:38] VITALS: BP 144/60
--- NOTE | 2019-01-06 05:31 | NUR ---
ASSUMED PT CARE AT 1930. ALERT AND ORIENTED BUT FORGETFUL AND CONFUSED AT TIMES. LEFT SIDED WEAKNESS. UP WITH MIN ASSIST, GAIT BELT AND WALKER. NEEDS CUEING TO FIND BATHROOM AND TO LIFT UP LEFT FOOT. URINARY INCONTINENCE AND CLOTHING CHANGE X2. WEARS BRIEFS. PT AWAKE OFF AND ON ALL NIGHT. UP ONCE WITHOUT CALLING. CALL LIGHT IN REACH. BED ALARM ON FOR SAFETY. HOURLY ROUNDING IN PROGRESS, WILL CONTINUE TO MONITOR.
[2019-01-06 08:00] VITALS: BP 165/87
--- NOTE | 2019-01-06 16:48 | NUR ---
ASSUMMED CARE OF PT AT 0730, PT ALERT, FORGETFUL, TRANSFERS WITH ASSIST OF 1 GB WALKER AND FREQUENT CUEING, DOES NOT STAY FOCUSED ON TASK, NEEDS REDIRECTIONS, TAKING FOOD AND FLUIDS WELL, PT REQUESTED TO AMBULATE TO BATHROOM BUT WHEN HALF WAY TO BATHROOM PT STATED HE ALREADY WENT IN HIS BRIEF,PT STATES HE DOESNT ALWAYS KNOW WHEN HE GOES, NO BM THIS SHIFT, PT STATED HE HAS DOUBLE VISION WHEN HE WATCHES TV, STATES HE HAS HAD THIS SINCE HIS ADMISSION, INFORMED PHYSICIAN ON ROUNDS, NEURO CONSULT ORDERED AND WILL SEE TOMMORROW, DENIES PAIN, PARTICIPATED IN ALL THERAPIES, HOURLY ROUNDING COMPLETED, ASSESSMENT COMPLETE, WILL CONTINUE TO MONITOR
[2019-01-06 20:00] VITALS: BP 134/62
--- NOTE | 2019-01-07 05:05 | NUR ---
ASSUMED PT CARE AT 1930. PT ALERT, FORGETFUL, UNABLE TO FOCUS ON TASKS. UP WITH ONE WITH GAIT BELT, WALKER AND CUEING TO BATHROOM TO VOID BUT HAD ALREADY VOIDED IN HIS PULLUP. PT USED URINAL TO VOID FIVE TIMES OVERNIGHT. INSISTS ON TRYING TO STAND TO VOID BUT IS WEAK AND UNABLE TO STAND UNASSISTED. PT CAN BE UNCOOPERATIVE AND INAPPROPRIATE AT TIMES. MORE CONFUSED THIS SHIFT. NEVER USED HIS CALL LIGHT, SET OFF BED ALARM FIVE PLUS TIMES. HOURLY ROUNDING IN PROGRESS, WILL CONTINUE TO MONITOR.
[2019-01-07 08:21] VITALS: BP 161/80
--- NOTE | 2019-01-07 13:19 | NUR ---
ASSUMED CARE AT 0730. ALERT ORIENTED BUT FORGETFUL HX OF EARLY DEMENTIA. PLEASANT COOPERATIVE. TRANSFERS WITH SBA GAIT BELT AND WALKER. AMBULATES TO BR TO VOID SLOW GAIT L AFO ON NEEDS CUEING TO CARRY THROUGH AND KEEP WALKER CLOSER FOR SAFETY. WEARS PULLUPS FOR INCONTIENCE. BED CHAIR ALARM FOR SAFETY IMPULSIVE AT TIMES, NEEDS TO USE CALL LIGHT INSTRUCTIONS GIVEN. DAUGHTER AND FEMALE FRIEND HERE VISITING. PARTICIPATING IN THERAPIES THIS A.M. DENIES PAIN OR CONCERNS.
--- NOTE | 2019-01-07 18:11 | NUR ---
PT. APPETITE GOOD EATS WELL. FEEDS SELF. UP IN RECLINER. NEEDS REMINDERS TO CALL FOR ASSIST TO AMBULATE TO BR.
[2019-01-07 20:00] VITALS: BP 161/68
[2019-01-08 04:34] LABS: ABSOLUTE BASOPHILS 0.1 thou/uL (0.0-0.2); ABSOLUTE EOSINOPHILS 0.5 thou/uL (0.0-0.7); ABSOLUTE LYMPHOCYTES 1.8 thou/uL (0.8-5.3); ABSOLUTE MONOCYTES 0.8 thou/uL (0.0-1.2); ABSOLUTE NEUTROPHILS 4.6 thou/uL (1.6-8.1); BASOPHILS 0.9 %; EOSINOPHILS 6.7 %; HEMATOCRIT 44.1 % (42.0-52.0); HEMOGLOBIN 14.7 gm/dL (14.0-18.0); LYMPHOCYTES 22.8 %; MCH 28.9 pg (26.0-34.0); MCHC 33.5 g/dL (28.0-37.0); MCV 86.4 fL (80.0-100.0); MONOCYTES 10.8 %; MPV 9.1 fl. (7.2-11.1); NUCLEATED RBCS 0 /100WBC; PLATELET COUNT* 161 thou/uL (150-400); POLYS 58.8 %; RDW-CV 12.8 % (10.5-14.5); WBC 7.8 thou/uL (4.0-11.0)
[2019-01-08 04:43] LABS: CREATININE 0.9 mg/dL (0.6-1.3); POTASSIUM 4.3 mmol/L (3.5-5.1)
--- NOTE | 2019-01-08 05:10 | NUR ---
ASSUMED PT CARE AT 1930. PT ALERT AND MORE AGREEABLE THAN LAST NIGHT. PT DENIES PAIN. PT SET OFF BED ALARM FIVE TIMES SO FAR THIS SHIFT, EACH TIME BECAUSE HE NEEDED TO URINATE. WEARS BRIEFS. PT HAS HX OF DEMENTIA, TALKING TO HIMSELF MORE OVERNIGHT. PT HAS REPEATEDLY PULLED CALL LIGHT OUT OF THE WALL. CALL LIGHT AND FREQUENTLY USED ITEMS IN REACH. BED ALARM ON FOR SAFETY. HOURLY ROUNDING IN PROGRESS, WILL CONTINUE TO MONITOR.
[2019-01-08 08:12] VITALS: BP 147/69
--- NOTE | 2019-01-08 16:36 | NUR ---
ASSUMMED CARE OF PT AT 0730, PT ALERT, FORGETFUL, SLIGHTLY IMPULSIVE AT TIMES, AMBULATES TO BATHROOM TO VOID AND HAVE BM BUT PRIOR TO GETTING TO BATHROOM IS INCONTINENT OF BOWEL AND BLADDER, WEARS BRIEF, PT TRANSFERS WITH ASSIST OF 1, GB WALKER AND FREQUENT CUEING HE LOOSES FOCUS EASILY, TAKING FOOD AND FLUIDS WELL, UP IN CHAIR MUCH OF SHIFT, DENIES PAIN, ASSESSMENT COMPLETE, HOURLY ROUNDING COMPLETE, WILL CONTINUE TO MONITOR.
[2019-01-08 19:45] VITALS: BP 123/48
[2019-01-08] MEDS ORDERED: ONCE DAILY1 EAC1 PO (21:02)
[2019-01-08] MEDS ORDERED: MULTIVITAMINS1 EAC7 PO (21:04)
[2019-01-08] MEDS ORDERED: VITAMIN B-12500 MCG PO (21:05)
[2019-01-08] MEDS ORDERED: NORVASC5 MG PO (21:05)
[2019-01-08] MEDS ORDERED: PROTONIX40 M1 PO (21:06)
[2019-01-08] MEDS ORDERED: COLACE100 MG PO (21:07)
--- NOTE | 2019-01-08 22:17 | NUR ---
ASSUMED CARES AT 1915. PT ALERT AND ORIENTED X 2. PLEASANT AND RESTING IN CHAIR. CAN BE FORGETFUL AND CONFUSED AT TIMES. AT 1940, WHILE OBTAINING VITALS, THIS RN NOTED PT TO HAVE IRREGULAR HR WITH VARYING HEART RATES FROM 80-150'S. BP: 123/49. O2 SAT 94% AND AFEBRILE. PT NOT IN ANY DISTRESS AND DENIED ANY CHEST PAIN, FRIEDMAN, DIZZINESS, OR SOA. MIRNA BRADLEY - OPTICAL GLASS INSPECTOR NOTIFIED AND EKG OBTAINED WHICH SHOWED AFIB. AT 2014, MIRNA BRADLEY SPOKE WITH DR GARIBAY. NEW ORDERS WRITTEN AND FOR PT TO BE TRANSFERRED TO TELE. REPORT WAS GIVEN TO MAVERICK BRADLEY - TELE. INFORMED HER THAT NEW ORDERS NEEDED TO STILL BE COMPLETED PT IS A FULL D/C FROM REHAB. PT TAKEN DOWN TO TELE VIA W/C WITH PERSONAL BELONGINGS AT 2154.
[2019-01-09] MEDS ORDERED: XANAX 0.25 MG0.25 MG PO ×2 (07:54→07:57)
[2019-01-09] MEDS ORDERED: DULCOLAX5 MG RECTAL (07:59)
[2019-01-09] MEDS ORDERED: COLACE100 MG PO (07:59)
[2019-01-09] MEDS ORDERED: FLEET ENEMA133 ML RECTAL (08:04)
[2019-01-09] MEDS ORDERED: MELATONIN5 M1 PO (08:04)
[2019-01-09] MEDS ORDERED: MILK OF MA400 MG/5 M PO (08:06)
[2019-01-09] MEDS ORDERED: MYRBETRIQ25 MG PO (08:07)
[2019-01-09] MEDS ORDERED: THERAGRAN-M PR1 EAC1 PO (08:08)
[2019-01-09] MEDS ORDERED: TYLENOL325 MG PO (08:08)
[2019-01-09] MEDS ORDERED: VITAMIN B-12500 MCG PO (08:09)
[2019-01-09] MEDS ORDERED: ONDANSETRON HCL4 M2 PO (08:10)
[2019-01-09] MEDS ORDERED: MAG-AL PLUS XS30 ML PO (08:13)
--- NOTE | 2019-01-09 17:10 | EKG ---
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1940 Requested By: Jaziel Brown Order Number: [id number] Reading MD: Edwin Garibay Measurements Intervals [place] Rate: 132 P: NE: QRS: -38 QRSD: 88 T: 142 QT: 295 QTc: 437 Interpretive Statements Atrial fibrillation Abnormal R-wave progression, late transition LVH with secondary repolarization abnormality ST depression, probably rate related Compared to ECG 12/25/2018 09:41:36 Sinus rhythm no longer present Electronically Signed On 01-09-2019 17:10:35 CDT by Edwin Garibay [email or web address] <ELECTRONICALLY SIGNED> By: Edwin Garibay MD, FAC 01/09/19 1710 47 47 Edwin Garibay MD, [facility] /EPI
== END 2019-01-08 20:19 | disposition short-term general hospital (02) | DRG 56 ==
LOC: M.REH 14:44
PROVIDERS: Family Medicine; ADMIT Physical Medicine & Rehabilitation
DX: I69.354 Hemiplegia and hemiparesis following cerebral infarction affecting left non-dominant side (principal); I63.9 Cerebral infarction, unspecified; E44.0 Moderate protein-calorie malnutrition; F03.90 Unspecified dementia, unspecified severity, without behavioral disturbance, psychotic disturbance, mood disturbance, and anxiety; I25.10 Atherosclerotic heart disease of native coronary artery without angina pectoris; E78.00 Pure hypercholesterolemia, unspecified; F32.9 Major depressive disorder, single episode, unspecified; I10 Essential (primary) hypertension; R32 Unspecified urinary incontinence; G47.33 Obstructive sleep apnea (adult) (pediatric); E78.5 Hyperlipidemia, unspecified; E53.8 Deficiency of other specified B group vitamins; I48.91 Unspecified atrial fibrillation; Z95.5 Presence of coronary angioplasty implant and graft; Z88.8 Allergy status to other drugs, medicaments and biological substances; Z82.49 Family history of ischemic heart disease and other diseases of the circulatory system; Z83.3 Family history of diabetes mellitus; Z87.891 Personal history of nicotine dependence; Z79.899 Other long term (current) drug therapy; Z68.25 Body mass index [BMI] 25.0-25.9, adult

== ENCOUNTER 2019-01-08 20:15 | Inpatient (IN) | payer OTHER ==
[~2019-01-08] VITALS: Ht 167.6 cm; Wt 74.3 kg
[~2019-01-08 20:15] MED LIST changes: +LIPITOR10 MG PO; +NAMENDA 5 MG TAB5 M1 PO; +SERTRALINE HCL50 MG PO
[2019-01-08] MEDS ORDERED: ONCE DAILY1 EAC1 PO (21:02)
[2019-01-08] MEDS ORDERED: MULTIVITAMINS1 EAC7 PO (21:04)
[2019-01-08] MEDS ORDERED: NORVASC5 MG PO (21:05)
[2019-01-08] MEDS ORDERED: VITAMIN B-12500 MCG PO (21:05)
[2019-01-08] MEDS ORDERED: PROTONIX40 M1 PO (21:06)
[2019-01-08] MEDS ORDERED: COLACE100 MG PO (21:07)
[2019-01-08 22:00] VITALS: BP 110/62
[2019-01-09] VITALS: BP 104/43
[2019-01-09 01:36] LABS: ABSOLUTE BASOPHILS 0.1 thou/uL (0.0-0.2); ABSOLUTE EOSINOPHILS 0.5 thou/uL (0.0-0.7); ABSOLUTE LYMPHOCYTES 1.7 thou/uL (0.8-5.3); ABSOLUTE MONOCYTES 1.1 thou/uL (0.0-1.2); ABSOLUTE NEUTROPHILS 6.6 thou/uL (1.6-8.1); BASOPHILS 0.6 %; EOSINOPHILS 4.6 %; HEMATOCRIT 43.3 % (42.0-52.0); HEMOGLOBIN 14.7 gm/dL (14.0-18.0); LYMPHOCYTES 16.9 %; MCH 29.4 pg (26.0-34.0); MCV 86.6 fL (80.0-100.0); MONOCYTES 10.9 %; MPV 9.8 fl. (7.2-11.1); NUCLEATED RBCS 0 /100WBC; PLATELET COUNT* 181 thou/uL (150-400); RDW-CV 13.1 % (10.5-14.5); WBC 9.9 thou/uL (4.0-11.0)
--- NOTE | 2019-01-09 02:00 | NUR ---
RECEIVED PT FROM SEARCH ENGINE OPTIMIZATION SPECIALIST @ 9017. PT CONFUSED @ TIMES PER BASELINE. PT DENIED ANY CP. IV AND CARDIZEM DRIP STARTED. PT WAS ABLE TO CONVERT TO SR SHORTLY AFTER STARTING DRIP. WAS ABLE TO REST TRHOUGH MOST OF SHIFT. CALL LIGHT IN REACH. HOURLY ROUNDING FOR SAFETY.
[2019-01-09 02:03] LABS: CALCIUM 8.6 mg/dL (8.5-10.1); CREATININE 0.9 mg/dL (0.6-1.3); POTASSIUM 4.1 mmol/L (3.5-5.1)
[2019-01-09 02:07] LABS: ALBUMIN 3.4 g/dL (3.4-5.0); TOTAL BILIRUBIN 0.1 mg/dL (<0.1-1.0); TOTAL PROTEIN 6.3 g/dL (6.4-8.2)
[2019-01-09 04:00] VITALS: BP 127/58
[2019-01-09] MEDS ORDERED: XANAX 0.25 MG0.25 MG PO ×2 (07:54→07:57)
[2019-01-09] MEDS ORDERED: COLACE100 MG PO (07:59)
[2019-01-09] MEDS ORDERED: DULCOLAX5 MG RECTAL (07:59)
[2019-01-09 08:00] VITALS: BP 132/61
[2019-01-09] MEDS ORDERED: MELATONIN5 M1 PO (08:04)
[2019-01-09] MEDS ORDERED: FLEET ENEMA133 ML RECTAL (08:04)
[2019-01-09] MEDS ORDERED: MILK OF MA400 MG/5 M PO (08:06)
[2019-01-09] MEDS ORDERED: MYRBETRIQ25 MG PO (08:07)
[2019-01-09] MEDS ORDERED: THERAGRAN-M PR1 EAC1 PO (08:08)
[2019-01-09] MEDS ORDERED: TYLENOL325 MG PO (08:08)
[2019-01-09] MEDS ORDERED: VITAMIN B-12500 MCG PO (08:09)
[2019-01-09] MEDS ORDERED: ONDANSETRON HCL4 M2 PO (08:10)
[2019-01-09] MEDS ORDERED: MAG-AL PLUS XS30 ML PO (08:13)
[2019-01-09 12:13] VITALS: BP 134/70
--- NOTE | 2019-01-09 12:48 | NUR ---
ASSUMED PT CARE REPORT RECEIVED FROM NURSE. PT IS AOX4, ON RA. TRACING SR ON WEB SITE DEVELOPER. CARDIZEM DRIP INFUSING. MANAGEMENT AND BUDGET ANALYST STATES TO KEEP DRIP RUNNING UNTIL PT IS SEEN BY HIM. PT IS NPO PER PPROTOCOL. NO COMPLAINT. HOME MEDICATION RESTARTED. VSS. WILL CONTINUE TO MONITOR
--- NOTE | 2019-01-09 13:28 | NUR ---
Pt is A&O. Transferred down from acute rehab. Spoke with psychosocial rehabilitation counselor, plan for Pt to return to acute rehab once medically stable. Therapy evals ordered. Pt normally resides at home with his dtr. Pt's S/O stays with him sometimes during the day. Hx of HH. No hx of SNF. Pt has a walker and cane at home that he can uses as needed. Following.
[2019-01-09 16:13] VITALS: BP 135/69
--- NOTE | 2019-01-09 18:53 | NUR ---
Crdizem drip stopped per dr order. pt remains in sr. heart rate in 70s. no complaint. call light at reach
[2019-01-09 19:35] VITALS: BP 117/60
--- NOTE | 2019-01-09 23:37 | NUR ---
INITAL ASSESMENT COMPLETED AT 1935. PT PLEASANT AND COOPERATIVE, DENIED PAIN OR DISCOMFORT AT THAT TIME. PT REPORTED THAT HE WAS INCONTINENT OF URINE AND NEEDED HIS BED CHANGED. PARTIAL BATH GIVEN, COMPLETE BED CHANGE DONE. CALL LIGHT IN REACH, PT DEMONSTRATES PROPER USE.
[2019-01-10] VITALS: BP 124/60
[2019-01-10 03:59] VITALS: BP 118/63
--- NOTE | 2019-01-10 06:17 | NUR ---
PT PROGRESSING TOWARD GOALS DURING SHIFT. PT REMAINS SINUS RHYTHM DURING NIGHT. VITAL SIGNS WITHIN NORMAL LIMITS. PT HAD TROPONIN OF 1.07 THIS AM. RESULT CALLED TO DR VILLATORO. NO ORDERS RECIEVED. CALL LIGHT IN REACH, PT USING PROPERLY. NO ACUTE CHANGES. WILL CONTINUE TO MONITOR.
--- NOTE | 2019-01-10 07:20 | NUR ---
CHANGE OF SHIFT BEDSIDE REPORT GIVEN PATIENT SEEN AT BEDSIDE, IN BED RESTING ASSUMED PATIENT CARE
[2019-01-10 08:00] VITALS: BP 146/61
--- NOTE | 2019-01-10 11:40 | EKG ---
[place] [address] ELECTROCARDIOGRAM REPORT Name: BRENDA ROGERS Room: [address] ADM IN M.R.#: [id number] Admission: 01/08/19 Attend Phys: Juventino Dash MD Discharge: Date of : 38 Report #: [id number] THIS REPORT FOR: //name// [facility] Test Date: 2019-01-10 Test Time: 08:14:23 Pat Name: BRENDA ROGERS Department: Room: [address] Gender: M Car Bracer: : 1940 Requested By: Edwin Garibay Order Number: [id number] Candelario MD: Edwin Garibay Measurements Intervals [place] Rate: 59 P: 70 NC: 165 QRS: -20 QRSD: 95 T: 142 QT: 451 QTc: 447 Interpretive Statements Sinus rhythm Probable left atrial enlargement LVH w/ repol abnormalities, possible ischemia Baseline wander in lead(s) II,III,aVF Compared to ECG 01/08/2019 19:48:49 Atrial fibrillation no longer present Electronically Signed On 01-10-2019 11:40:25 CDT by Edwin Garibay [email or web address] <ELECTRONICALLY SIGNED> By: Edwin Garibay MD, [facility] 01/10/19 1140 0814 Edwin Garibay MD, [facility] /EPI
[2019-01-10 15:46] VITALS: BP 97/57
[2019-01-10 19:30] VITALS: BP 107/56
[2019-01-11] VITALS: BP 132/93
[2019-01-11 04:00] VITALS: BP 130/68
[2019-01-11 08:30] VITALS: BP 107/53
--- NOTE | 2019-01-11 11:08 | EKG ---
[place] [address] ELECTROCARDIOGRAM REPORT Name: BRENDA ROGERS Room: [address] ADM IN M.R.#: [id number] Admission: 01/08/19 Attend Phys: Juventino Dash MD Discharge: Date of : 38 Report #: [id number] THIS REPORT FOR: //name// [facility] Test Date: 2019-01-11 Test Time: 08:40:40 Pat Name: BRENDA ROGERS Department: Room: [address] Gender: M Paper [employer] Pul[employer] Worker: : 1940 Requested By: Edwin Garibay Order Number: [id number] Candelario MD: Edwin Garibay Measurements Intervals [place] Rate: 49 P: 50 CT: 166 QRS: -28 QRSD: 102 T: 127 QT: 499 QTc: 451 Interpretive Statements Sinus bradycardia LVH w/ repol abnormalities, possible ischemia Compared to ECG 01/10/2019 08:14:23 Possible ischemia still present Electronically Signed On 01-11-2019 11:08:30 CDT by Edwin Garibay [email or web address] <ELECTRONICALLY SIGNED> By: Edwin Garibay MD, [facility] 01/11/19 1108 0840 Edwin Garibay MD, [facility] /EPI
[2019-01-11 12:02] VITALS: BP 104/49
--- NOTE | 2019-01-11 12:21 | NUR ---
Pt medically stable for dc, orders written. Updated rehab technician. Insurance auth will need to be received prior to dc. Following.
--- NOTE | 2019-01-11 14:33 | NUR ---
I have reviewed the documentation by HARIKA GOMEZ from 01/10/19 to 01/11/19 and I concur with it. MILLIE LOO
--- NOTE | 2019-01-11 16:36 | CON ---
[address] [address] CONSULTATION Name: BRENDA ROGERS Room: [address] IN M.R.#: [id number] Admission: 01/08/19 Attend Phys: Juventino Dash MD Discharge: Date of : 38 Report #: [id number] THIS REPORT FOR: //name// CC: Juventino Ocampo MD DATE OF SERVICE: 01/09/2019 CARDIOLOGY CONSULTATION HISTORY OF PRESENT ILLNESS: The patient is a 78-year-old white male who I was asked to see in the hospital today after he had an episode of atrial fibrillation. The history is obtained from the patient as well as some old records. The patient has a history of coronary artery stenting. Recently, he was followed by Dr. Alexander in my office. He was seen by my nurse practitioner 3 months ago. The patient stays fairly active at this time. He has had several coronary artery stents in the past. His last heart catheterization here at [place] [facility] was actually back in [address] Cervantes and he was found to have an 80% stenosis in the LAD after positive stress test. The patient had no significant disease in the circumflex or right coronary artery. He had a normal left ventricular function, ejection fraction 65%. He was given Effient and had a drug-eluting stent placed in 2 areas in the LAD. He has done well since that time. His last stress test was a couple of years ago. He actually had an echocardiogram done earlier this month that showed an ejection fraction of 55% with left ventricular hypertrophy, but no evidence of a shunt. The patient states he was doing well until yesterday when he felt little short of breath and felt an irregular heartbeat. He came to the hospital and found to be in atrial fibrillation. He was started on IV Cardizem and converted to sinus rhythm. I was asked to see him for further evaluation and treatment. He denies any recent chest pain, fever. PAST MEDICAL HISTORY: Otherwise, he has had a hemicolectomy, back surgery. He has a history of hyperlipidemia and hypertension. MEDICATIONS: At home consists of Xanax, amlodipine, aspirin, Lipitor, Plavix, Isordil, Protonix. HE HAS PREVIOUS INTOLERANCE TO STATIN DRUGS AND ZETIA. He was on PCSK9 inhibitor injections in the past, but no longer takes them. He is on Aricept for memory loss. FAMILY HISTORY: Negative for heart disease. SOCIAL HISTORY: He is single, lives in [place], [place]. 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 Quit smoking. No alcohol abuse. REVIEW OF SYSTEMS: He has had no history of stroke. [place] [address] CONSULTATION Name: BRENDA ROGERS Room: [address] IN ..#: [id number] Admission: 01/08/19 Attend Phys: Juventino Dash MD Discharge: Date of : 38 Report #: [id number] No history of asthma, peptic ulcer disease, liver disease, kidney disease, chronic skin condition. PHYSICAL EXAMINATION: GENERAL: Revealed an elderly male, appeared in no distress. VITAL SIGNS: He had a blood pressure of 130/70, pulse 60. He is afebrile. HEENT: He was anicteric. Conjunctivae pink. Mucous membranes moist. NECK: Veins do not appear distended. No carotid bruits. Neck supple. CHEST: Clear to auscultation. CARDIOVASCULAR: Regular rate and rhythm. No significant murmurs. ABDOMEN: Soft. EXTREMITIES: Had no edema. LABORATORY DATA: ECG on admission yesterday showed atrial fibrillation with rapid ventricular response rate. Today, the patient appears to be in a sinus rhythm. His workup, he had lab work: Sodium 144, creatinine 0.9. Liver function studies were normal. Troponin 0.34, last September his cholesterol was 235, triglyceride 152, HDL 57, LDL of 148. He has a TSH 2.9. White blood cell count ____, hemoglobin 14.7. IMPRESSION AND RECOMMENDATIONS: 1. Atrial fibrillation. The patient converted to sinus rhythm. At this time, I would start sotalol and Eliquis for anticoagulation. 2. Previous coronary artery stenting. No recent angina. I would continue Plavix at this time, discontinue aspirin. 3. Hyperlipidemia. The patient cannot tolerate statin drugs and Zetia. 4. Dementia. 5. Sleep apnea. <ELECTRONICALLY SIGNED> By: Edwin Garibay MD, [facility] 01/11/19 1636 1349 [id number] Garibay MD, FACC /nt
[2019-01-11 16:54] VITALS: BP 103/52
--- NOTE | 2019-01-11 19:35 | NUR ---
PT. STABLE THROUGH OUT SHIFT. INCONT. OF URINE, BM AT BSC. PT. REQUIRES ASSIST X2 FOR TRANSFER, WITH LITTLE TO NO MOVEMENT OF LEFT FOOT/LEG WHEN ATTEMPTING TO WALK. MRI COMPLETED PER ORDERS. PT. DAUGHTER'S UPDATED ON PLAN OF CARE. HOURLY ROUNDING COMPLETED FOR PT. SAFETY.
[2019-01-11 20:00] VITALS: BP 108/54
--- NOTE | 2019-01-11 20:00 | NUR ---
RECEIVED REPORT AND ASSUMED CARE OF PT, ASSESSMENT COMPLETED. ABLE TO ANSWER ORIENTATION QUESTIONS BUT CONVERSATION WAS NOT APPROPRIATE. CONT TO HAVE LT SIDED WEAKNESS. PT IS COOPERATIVE. TELEMETRY ON SHOWING SR. WILL CONT TO MONITOR AND ASSIST NEEDED.
[2019-01-12] VITALS: BP 124/54
[2019-01-12 04:00] VITALS: BP 131/65
--- NOTE | 2019-01-12 05:34 | NUR ---
AWAKE OCC, VERY CONFUSED, ABLE TO REDIRECT. INCONT OF URINE AND ABLE TO USE URINAL SOME. TELEMETRY CONT TO SHOW SR. ASSESSMENT UNCHANGED. HS GOALS OF REST AND SAFETY ACHIEVED. HOURLY ROUNDING OBSERVED.
[2019-01-12 08:00] VITALS: BP 145/77
--- NOTE | 2019-01-12 10:45 | CON ---
[address] [address] CONSULTATION Name: BRENDA ROGERS Room: [address] IN M.R.#: [id number] Admission: 01/08/19 Attend Phys: Juventino Dash MD Discharge: Date of : 38 Report #: [id number] THIS REPORT FOR: //name// CC: Juventino Ocampo DATE OF SERVICE: 01/09/2019 HISTORY OF PRESENT ILLNESS: This is a 78-year-old male patient who was seen by me for diplopia. This patient noticed diplopia. History is not very clear. He thinks diplopia is going on from the present stroke. He thinks he is actually becoming better. He indicates he had a stroke in the past, which left him with weakness on the left side. He does not remember what testing was done, I reviewed this patient's records and he had an MRI done in 2016. That MRI did not show any acute stroke, but then he had a repeat MRI and CT, which demonstrated right-sided stroke, which will correlate with the left-sided symptoms. His history is poorly defined because of his memory problem. When he came in, he was also disoriented. REVIEW OF SYSTEMS: Records indicate he has dementia. He has a history of cardiac problems. At this time, he is admitted because he went into the atrial fibrillation. He does have a history of hallucination. This was his relevant 14-point review of system. He does not complain of any new eye, ENT, respiratory, GI, , musculoskeletal, constitutional, dermatological, hematological, psychiatric, throat, allergic symptom associated with present symptomatology. 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 FAMILY HISTORY: Unremarkable. SOCIAL HISTORY: He has a history of smoking, but he indicates he does not do now. PHYSICAL EXAMINATION: Indicates he is alert, responsive. He knew what month it is, but his memory looks poor. His speech and concentration looks mostly unremarkable. Fund of knowledge is also poor. Cranial nerve examinations appear unremarkable. Neuromuscular examination indicate weakness on the left leg, which he indicates is present since 2016, but history is not clear. His position sense is intact on both sides. His reflexes are symmetrical. There is no meningeal sign. There is no carotid bruit. His pulses are palpable. He has no edema, cyanosis or jaundice. No respiratory difficulty or rhonchi was noticed. From cardiac perspective, he apparently had an atrial fibrillation episode. His blood pressure is 135/69, respiration is 19, pulse is 60, temperature is 98.1. [place] [address] CONSULTATION Name: BRENDA ROGERS COLIN Room: [address] IN ..#: [id number] Admission: 01/08/19 Attend Phys: Juventino Dash MD Discharge: Date of : 38 Report #: [id number] LABORATORY DATA: His white count is 9.9. His sodium is 144. His CT scan was mostly unremarkable. IMPRESSION: This patient has multiple problems. He has diffuse disease on the brain and that would be consistent with his clinical presentation of a lot of memory problems. He does have strokes. Strokes are recent. With the new history of atrial fibrillation, we need to resume that the stroke is because of that. His atrial fibrillation is being addressed by Cardiology. If he is going to be on anticoagulation, I will suggest discontinuing the patient's aspirin and Plavix. Other etiologies like myasthenia gravis need to be excluded, but there is enough pathology on his MRI that his symptoms may be because of that. His lipid profile was markedly abnormal and we need to correct that. His sed rate was normal, making it unlikely that there is any vasculitis going on. RECOMMENDATIONS: He is on anticoagulation and neurologically there is no contraindication for anticoagulation because stroke is already several days old and it was a small stroke and is less likely to bleed. I am not sure anything else neurologically can be done if he is becoming better, but we can check the pending myasthenia markers on him. Thank you very much. <ELECTRONICALLY SIGNED> By: Parag Perez MD 01/12/19 1045 2036 [id number] Perez MD /nt
[2019-01-12] MEDS ORDERED: ELIQUIS5 MG PO (11:34)
--- NOTE | 2019-01-12 11:55 | NUR ---
Continue to await insurance auth
[2019-01-12 13:04] VITALS: BP 116/52
[2019-01-12 16:00] VITALS: BP 104/54
--- NOTE | 2019-01-12 18:40 | NUR ---
ASSUMED PT CARE AT 0700, PT A&O X4 BUT ORIENTATION WORSENING THROUGHOUT DAY. VSS, RA, STORE ASSOCIATE TRACING SINUS TRACI, FULL ASSESSMNET CHARTED. PT/OT ON BOARD, PT TO POSSIBLY TRANSFER TO REHAB TOMORROW, HOURLY ROUNDING COMPLETED.
[2019-01-12 20:00] VITALS: BP 114/54
[2019-01-13] VITALS: BP 118/52
[2019-01-13 04:00] VITALS: BP 122/56
--- NOTE | 2019-01-13 06:05 | NUR ---
ASSUMED PT CARE AT 1930. NURSING ASSESSMENT COMPLETED AT START OF SHIFT. PT AAOX2 AT START OF SHIFT. PT CALM AND COOPERATIVE BUT FORGETFUL. SB ON PLANNING DIRECTOR. HIGH FALL PRECAUTIONS IN PLACE, Q2H REPOSITIONING COMPLETED, PT INCONTINENT OF URINE. HOURLY ROUNDING COMPLETED. CALL LIGHT WITHIN REACH. PT VOICED NO CONCERNS THIS SHIFT.
[2019-01-13 08:00] VITALS: BP 135/63
--- NOTE | 2019-01-13 11:04 | NUR ---
Insurance auth received for pt to dc to inpt rehab today.
[2019-01-13 12:05] VITALS: BP 112/54
[2019-01-13] MEDS ORDERED: SORINE 80 MG TA80 M1 PO (14:04)
[2019-01-13] MEDS ORDERED: DULCOLAX5 MG RECTAL ×2 (14:58→15:25)
[2019-01-13 15:54] VITALS: BP 112/54
--- NOTE | 2019-01-13 16:24 | NUR ---
ASSUMED PT CARE AT 0700, PT A&O X4 WITH SOME FORGETFULNESS, VSS, RA, DIE LAY OUT WORKER TRACING SINUS TRACI, FULL ASSESSMENT CHARTED. PT DISCHARGING TO REHAB, FAMILY NOTIFIED. DIE LAY OUT WORKER AND IV REMOVED, HOURLY ROUNDING COMPLETED.
== END 2019-01-13 16:48 | DRG 64 ==
LOC: M.2W 20:15
PROVIDERS: ADMIT Internal Medicine
DX: I63.9 Cerebral infarction, unspecified (principal); G93.41 Metabolic encephalopathy; E44.1 Mild protein-calorie malnutrition; G81.94 Hemiplegia, unspecified affecting left nondominant side; I48.91 Unspecified atrial fibrillation; Z88.8 Allergy status to other drugs, medicaments and biological substances; E78.00 Pure hypercholesterolemia, unspecified; I25.10 Atherosclerotic heart disease of native coronary artery without angina pectoris; F03.90 Unspecified dementia, unspecified severity, without behavioral disturbance, psychotic disturbance, mood disturbance, and anxiety; E78.5 Hyperlipidemia, unspecified; G47.33 Obstructive sleep apnea (adult) (pediatric); H53.2 Diplopia; Z90.49 Acquired absence of other specified parts of digestive tract; Z79.82 Long term (current) use of aspirin; Z79.899 Other long term (current) drug therapy; Z95.5 Presence of coronary angioplasty implant and graft; Z82.49 Family history of ischemic heart disease and other diseases of the circulatory system; Z80.3 Family history of malignant neoplasm of breast; Z83.3 Family history of diabetes mellitus; Z87.891 Personal history of nicotine dependence

== ENCOUNTER 2019-01-13 11:51 | Inpatient (IN) | payer OTHER ==
[~2019-01-13] VITALS: Ht 167.6 cm; Wt 73.5 kg
[~2019-01-13 11:51] MED LIST changes: +COLACE100 MG PO; +DULCOLAX5 MG RECTAL; +ELIQUIS5 MG PO; +FLEET ENEMA133 ML RECTAL; +MAG-AL PLUS XS30 ML PO; +MELATONIN5 M1 PO; +MILK OF MA400 MG/5 M PO; +MULTIVITAMINS1 EAC7 PO; +NORVASC5 MG PO; +ONCE DAILY1 EAC1 PO; +ONDANSETRON HCL4 M2 PO; +PROTONIX40 M1 PO; +THERAGRAN-M PR1 EAC1 PO; +TYLENOL325 MG PO; +VITAMIN B-12500 MCG PO; +XANAX 0.25 MG0.25 MG PO
[2019-01-13] MEDS ORDERED: SORINE 80 MG TA80 M1 PO (14:04)
[2019-01-13] MEDS ORDERED: DULCOLAX5 MG RECTAL ×2 (14:58→15:25)
[2019-01-13 20:00] VITALS: BP 116/54
[2019-01-14 08:00] VITALS: BP 124/53
[2019-01-14 09:11] LABS: HEMOGLOBIN 15.3 gm/dL (14.0-18.0); MCH 29.2 pg (26.0-34.0); MCHC 33.9 g/dL (28.0-37.0); MCV 86.1 fL (80.0-100.0); MPV 9.8 fl. (7.2-11.1); RBC 5.23 mil/uL (4.50-6.00); RDW-CV 13.2 % (10.5-14.5); WBC 7.6 thou/uL (4.0-11.0)
[2019-01-14 09:15] LABS: CALCIUM 8.8 mg/dL (8.5-10.1); CREATININE 0.9 mg/dL (0.6-1.3); POTASSIUM 4.3 mmol/L (3.5-5.1)
[2019-01-14 20:30] VITALS: BP 127/56
[2019-01-15 07:55] VITALS: BP 119/59
[2019-01-15 20:00] VITALS: BP 121/44; BP 148/52
[2019-01-16 07:59] VITALS: BP 136/57
[2019-01-16 19:30] VITALS: BP 113/49
[2019-01-17 07:30] VITALS: BP 109/54
[2019-01-17 20:04] VITALS: BP 155/56
[2019-01-18 07:00] VITALS: BP 128/64
[2019-01-18 20:04] VITALS: BP 121/48
[2019-01-19 08:30] VITALS: BP 113/54
[2019-01-19 20:09] VITALS: BP 113/54
[2019-01-20 08:00] VITALS: BP 122/49
[2019-01-20 20:10] VITALS: BP 113/50
[2019-01-21 08:26] VITALS: BP 134/54
[2019-01-21 19:53] VITALS: BP 112/47
[2019-01-22 08:10] VITALS: BP 118/60
[2019-01-22 19:30] VITALS: BP 109/49
[2019-01-23 08:00] VITALS: BP 122/48
[2019-01-23 19:30] VITALS: BP 117/49
[2019-01-24 08:00] VITALS: BP 144/60
[2019-01-24 17:57] LABS: ALBUMIN 3.4 g/dL (3.4-5.0); CALCIUM 8.7 mg/dL (8.5-10.1); CREATININE 0.9 mg/dL (0.6-1.3); POTASSIUM 4.2 mmol/L (3.5-5.1); TOTAL BILIRUBIN 0.3 mg/dL (<0.1-1.0); TOTAL PROTEIN 6.9 g/dL (6.4-8.2)
[2019-01-24 19:30] VITALS: BP 117/50
[2019-01-25 07:30] VITALS: BP 117/50
[2019-01-25 08:00] VITALS: BP 176/50
[2019-01-25 19:30] VITALS: BP 107/52
[2019-01-26 07:53] VITALS: BP 159/69
[2019-01-26 20:09] VITALS: BP 115/54
[2019-01-27 08:01] VITALS: BP 120/57
[2019-01-27 20:14] VITALS: BP 113/52
[2019-01-28 08:00] VITALS: BP 121/67
[2019-01-28 20:00] VITALS: BP 110/52
[2019-01-29 08:02] VITALS: BP 120/49
[2019-01-29 19:20] VITALS: BP 107/53; BP 120/49
[2019-01-30 08:17] VITALS: BP 121/48
[2019-01-30 14:15] VITALS: BP 109/47
[2019-01-30 20:00] VITALS: BP 110/49
[2019-01-31 07:20] VITALS: BP 137/78
[2019-01-31 19:30] VITALS: BP 115/94
[2019-02-01 07:30] VITALS: BP 163/64
[2019-02-01 13:47] LABS: HEMATOCRIT 41.5 % (42.0-52.0); HEMOGLOBIN 14.1 gm/dL (14.0-18.0); MCH 29.2 pg (26.0-34.0); MCV 85.9 fL (80.0-100.0); MPV 9.8 fl. (7.2-11.1); RBC 4.83 mil/uL (4.50-6.00); RDW-CV 13.4 % (10.5-14.5); WBC 9.5 thou/uL (4.0-11.0)
[2019-02-01 13:57] LABS: ALBUMIN 3.3 g/dL (3.4-5.0); CREATININE 0.8 mg/dL (0.6-1.3); MAGNESIUM 1.9 mg/dL (1.8-2.4); PHOSPHORUS* 3.3 mg/dL (2.5-4.9); POTASSIUM 4.4 mmol/L (3.5-5.1); TOTAL BILIRUBIN 0.4 mg/dL (<0.1-1.0); TOTAL PROTEIN 6.8 g/dL (6.4-8.2)
[2019-02-01 20:04] VITALS: BP 120/57
[2019-02-02 08:00] VITALS: BP 156/63
[2019-02-02 20:05] VITALS: BP 137/56
[2019-02-03 08:18] VITALS: BP 127/60
[2019-02-03] MEDS ORDERED: ARTIFICIAL TEAR15 M2 INART (13:46)
[2019-02-03 14:00] VITALS: BP 127/60; BP 145/61
[2019-02-03 20:05] VITALS: BP 149/55
[2019-02-04 08:17] VITALS: BP 134/60
[2019-02-04 20:04] VITALS: BP 105/79
[2019-02-05 07:00] VITALS: BP 128/44
[2019-02-05 19:30] VITALS: BP 155/54
[2019-02-06 07:35] VITALS: BP 130/65
[2019-02-06 19:30] VITALS: BP 139/61
[2019-02-07 05:31] LABS: HEMOGLOBIN 15.4 gm/dL (14.0-18.0); MCH 29.5 pg (26.0-34.0); MCHC 34.3 g/dL (28.0-37.0); MCV 86.1 fL (80.0-100.0); MPV 10.4 fl. (7.2-11.1); RBC 5.23 mil/uL (4.50-6.00); RDW-CV 13.4 % (10.5-14.5); WBC 8.1 thou/uL (4.0-11.0)
[2019-02-07 06:15] LABS: ALBUMIN 3.7 g/dL (3.4-5.0); CALCIUM 9.2 mg/dL (8.5-10.1); CREATININE 0.9 mg/dL (0.6-1.3); POTASSIUM 4.1 mmol/L (3.5-5.1); TOTAL BILIRUBIN 0.3 mg/dL (<0.1-1.0); TOTAL PROTEIN 7.7 g/dL (6.4-8.2)
[2019-02-07] MEDS ORDERED: SERTRALINE HCL50 MG PO (11:58)
[2019-02-07 12:09] VITALS: BP 145/61
== END 2019-02-07 14:01 | disposition home health service (06) | DRG 56 ==
LOC: M.REH 11:51
PROVIDERS: Family Medicine; ADMIT Physical Medicine & Rehabilitation
DX: I69.354 Hemiplegia and hemiparesis following cerebral infarction affecting left non-dominant side (principal); I63.9 Cerebral infarction, unspecified; R44.3 Hallucinations, unspecified; I48.91 Unspecified atrial fibrillation; I25.10 Atherosclerotic heart disease of native coronary artery without angina pectoris; F03.90 Unspecified dementia, unspecified severity, without behavioral disturbance, psychotic disturbance, mood disturbance, and anxiety; E78.00 Pure hypercholesterolemia, unspecified; I10 Essential (primary) hypertension; H53.2 Diplopia; G47.33 Obstructive sleep apnea (adult) (pediatric); E78.5 Hyperlipidemia, unspecified; F32.9 Major depressive disorder, single episode, unspecified; G89.29 Other chronic pain; Z60.2 Problems related to living alone; R32 Unspecified urinary incontinence; R26.9 Unspecified abnormalities of gait and mobility; Z79.01 Long term (current) use of anticoagulants; Z79.02 Long term (current) use of antithrombotics/antiplatelets; Z79.82 Long term (current) use of aspirin; Z88.8 Allergy status to other drugs, medicaments and biological substances; Z79.899 Other long term (current) drug therapy; Z95.5 Presence of coronary angioplasty implant and graft; Z82.49 Family history of ischemic heart disease and other diseases of the circulatory system; Z83.3 Family history of diabetes mellitus; Z87.891 Personal history of nicotine dependence; Z90.49 Acquired absence of other specified parts of digestive tract